=== PATIENT | male | born 1995 | race Caucasian/White ===

== ENCOUNTER 2018-03-17 09:17 | Inpatient (IN) | payer MEDICAID ==
[~2018-03-17] VITALS: Ht 175.3 cm; Wt 50.0 kg
[~2018-03-17 09:17] MED LIST: NO HOME MEDS
[2018-03-17] MEDS ORDERED: TETanus/Pertussis (Acell)/Diphther VAC/PF (Tdap-Adult) 0.5ml syringe IM ONE (09:45)
[2018-03-17] MEDS ORDERED: normal saline 1000ML IV soln IV ONE (09:45)
[2018-03-17] MEDS ORDERED: LIDOcaine 1.5% w/epinephrine 1:200,000 5ml ampul IJ ONE (09:45)
[2018-03-17 10:09] LABS: BASOPHILS % (AUTO) 0.1 % (0-1); EOSINOPHILS % (AUTO) 0 % (0-6); HEMATOCRIT 35.4 % (42.0-52.0); HEMOGLOBIN 12.1 g/dl (14.0-17.9); LYMPHOCYTES # (AUTO) 2.4 X10'3 (1.1-4.8); LYMPHOCYTES % (AUTO) 18.1 % (21-51); MEAN CORPUSCULAR HEMOGLOBIN 28.7 PG (27.0-31.0); MEAN CORPUSCULAR VOLUME 84.5 FL (78-98); MEAN PLATELET VOLUME 6.6 FL (7.4-10.4); MONOCYTES # (AUTO) 0.9 X10'3 (0-0.9); MONOCYTES % (AUTO) 6.4 % (2-12); NEUTROPHILS % (AUTO) 75.4 % (42-75); PLATELET COUNT 278 X10'3 (140-440); RED BLOOD COUNT 4.19 X10'6 (4.70-6.10); RED CELL DISTRIBUTION WIDTH 13.5 % (11.5-14.5); WHITE BLOOD COUNT 13.3 X10'3 (4.5-11.0)
[2018-03-17] MEDS ORDERED: iohexol 300mg/ml 100ml inj. ONE (10:10)
[2018-03-17 10:27] LABS: PLATELET ESTIMATE NORMAL; TOTAL CELLS COUNTED 100
[2018-03-17 10:34] LABS: ALANINE AMINOTRANSFERASE 43 U/L (12-78); ALBUMIN/GLOBULIN RATIO 0.7 (1.1-1.5); ALKALINE PHOSPHATASE 63 IU/L (46-116); ANION GAP 9 (8-16); ASPARTATE AMINO TRANSFERASE 29 U/L (10-37); BILIRUBIN,TOTAL 0.5 MG/DL (0.1-1.0); BLOOD UREA NITROGEN 8 MG/DL (7-18); BUN/CREATININE RATIO 8.2 (5.4-32.0); CALCIUM 8.3 MG/DL (8.5-10.1); CHLORIDE 96 MMOL/L (99-107); CREATININE 0.98 MG/DL (0.60-1.10); GLUCOSE 138 MG/DL (70-104); POTASSIUM 3.5 MMOL/L (3.5-5.1); SODIUM 134 MMOL/L (135-145); TOTAL PROTEIN 7.1 G/DL (6.4-8.2); eGFR > 90 ML/MIN
[2018-03-17] MEDS ORDERED: piperacillin/tazo 3.375gm/50ml 50 ML IV ONE (10:55)
[2018-03-17] MEDS ORDERED: vancomycin/NS 1 GM ADD-VANTAGE 250 ML IV ONE ×2 (10:55→13:00)
[2018-03-17] MEDS ORDERED: magnesium 4gm in 100ml NS 100 ML IV PRN (13:20)
[2018-03-17] MEDS ORDERED: magnesium 2GM in 50ml NS 50 ML IV PRN (13:20)
[2018-03-17] MEDS ORDERED: diphenhydrAMINE 25mg capsule PO PRN (13:20)
[2018-03-17] MEDS ORDERED: morphine 4 MG/ML inj SYRINge IV PRN (13:20)
[2018-03-17] MEDS ORDERED: HYDROcodone/acetaminophen 5mg/325mg tablet PO PRN (13:20)
[2018-03-17] MEDS ORDERED: magnesium hydroxide 30ml (MOM) UD suspension PO PRN (13:20)
[2018-03-17] MEDS ORDERED: magnesium Cl slow-release 64mg tablet PO PRN (13:20)
[2018-03-17] MEDS ORDERED: acetaminophen 325mg tablet PO PRN ×2 (13:20)
[2018-03-17] MEDS ORDERED: potassium Cl 20 mEq SR tablet PO PRN ×2 (13:20)
[2018-03-17] MEDS ORDERED: mag hydrox/Alum hydrox/simeth 30ml oral suspension PO PRN (13:20)
[2018-03-17] MEDS ORDERED: potassium Cl 40MEQ/NS 500ml 500 ML IV PRN ×2 (13:20)
[2018-03-17] MEDS ORDERED: lactobacillus rhamnosus 10,000 MMU CELLS/CAPSULE PO ONE (13:50)
[2018-03-17] MEDS: piperacillin/tazo 3.375gm/50ml 50 ML IV SCH ×2 (14:00→20:36)
[2018-03-17] MEDS: ondansetron/PF 4mg/2ml inj IV PRN (14:49)
[2018-03-17] MEDS: HYDROcodone/acetaminophen 10/325mg tab PO PRN (15:02)
[2018-03-17] MEDS: normal saline 1000ml 1,000 ML IV SCH ×2 (15:02→18:46)
[2018-03-17 15:07] LABS: CLARITY,URINE CLEAR (Clear); COLOR,URINE YELLOW (Yellow); GLUCOSE, URINE NEGATIVE (Neg); KETONES,URINE NEGATIVE (Neg); LEUKOCYTE ESTERASE ,URINE NEGATIVE (Neg); NITRITES, URINE NEGATIVE (Neg); OCCULT BLOOD,URINE NEGATIVE (Neg); PROTEIN,URINE NEGATIVE (Neg)
[2018-03-17 15:08] LABS: UA COLLECTION TYPE VOIDED
[2018-03-17 15:20] LABS: URINE AMPHETAMINE SCREEN POSITIVE (Neg); URINE BARBITUATE SCREEN NEGATIVE (Neg); URINE BENZODIAZEPINES SCREEN NEGATIVE (Neg); URINE CANNABINOID SCREEN NEGATIVE (Neg); URINE COCAINE SCREEN NEGATIVE (Neg); URINE METHADONE SCREEN NEGATIVE (Neg); URINE OPIATE SCREEN NEGATIVE (Neg); URINE PHENCYCLIDINE SCREEN NEGATIVE (Neg)
[2018-03-17 16:17] LABS: HIV ANTIBODY 1&2 RAPID NON-REACTIVE (Neg)
[2018-03-17 17:00] VITALS: BP 101/62
[2018-03-17] MEDS: K and/or MAG REPLACEMENT MC SCH (17:24)
[2018-03-17 18:00] VITALS: BP 115/77
[2018-03-17] MEDS: heparin, porcine 5000 units/ml vial SQ SCH (20:00)
[2018-03-17] MEDS: morphine 4 MG/ML inj SYRINge IV PRN (21:39)
[2018-03-17 22:00] VITALS: BP 105/63
[2018-03-18] VITALS (10 sets, daily range): BP systolic 92–107; BP diastolic 56–77
[2018-03-18] MEDS: VANCOMYCIN 750MG IV in NS 250 ML IV SCH ×2 (00:59→16:11)
[2018-03-18] MEDS ORDERED: LORazepam 2 mg/ml vial IV PRN (02:00)
[2018-03-18] MEDS ORDERED: LORazepam 1 MG tablet PO PRN (02:00)
[2018-03-18] MEDS: piperacillin/tazo 3.375gm/50ml 50 ML IV SCH ×4 (03:02→20:42)
[2018-03-18] MEDS: HYDROcodone/acetaminophen 10/325mg tab PO PRN ×3 (03:09→20:41)
[2018-03-18] MEDS: normal saline 1000ml 1,000 ML IV SCH ×3 (03:18→15:56)
[2018-03-18 06:26] LABS: BASOPHILS % (AUTO) 0.2 % (0-1); EOSINOPHILS # (AUTO) 0.1 X10'3 (0-0.9); EOSINOPHILS % (AUTO) 0.4 % (0-6); HEMATOCRIT 35.3 % (42.0-52.0); HEMOGLOBIN 12.1 g/dl (14.0-17.9); LYMPHOCYTES # (AUTO) 1.5 X10'3 (1.1-4.8); LYMPHOCYTES % (AUTO) 9.8 % (21-51); MEAN CORPUSCULAR HEMOGLOBIN 28.9 PG (27.0-31.0); MEAN CORPUSCULAR HGB CONC 34.2 % (33.0-36.5); MEAN CORPUSCULAR VOLUME 84.4 FL (78-98); MONOCYTES # (AUTO) 0.9 X10'3 (0-0.9); MONOCYTES % (AUTO) 5.9 % (2-12); NEUTROPHILS % (AUTO) 83.7 % (42-75); PLATELET COUNT 252 X10'3 (140-440); RED BLOOD COUNT 4.18 X10'6 (4.70-6.10); RED CELL DISTRIBUTION WIDTH 13.4 % (11.5-14.5); WHITE BLOOD COUNT 15.5 X10'3 (4.5-11.0)
[2018-03-18 06:37] LABS: ALANINE AMINOTRANSFERASE 39 U/L (12-78); ALBUMIN 2.3 G/DL (3.4-5.0); ALBUMIN/GLOBULIN RATIO 0.6 (1.1-1.5); ALKALINE PHOSPHATASE 62 IU/L (46-116); ANION GAP 9 (8-16); ASPARTATE AMINO TRANSFERASE 30 U/L (10-37); BILIRUBIN,TOTAL 0.4 MG/DL (0.1-1.0); BLOOD UREA NITROGEN 7 MG/DL (7-18); CALCIUM 8.3 MG/DL (8.5-10.1); CHLORIDE 101 MMOL/L (99-107); CREATININE 0.78 MG/DL (0.60-1.10); GLUCOSE 126 MG/DL (70-104); MAGNESIUM 2.1 MG/DL (1.5-2.4); PHOSPHORUS 2.7 MG/DL (2.3-4.5); POTASSIUM 3.9 MMOL/L (3.5-5.1); SODIUM 135 MMOL/L (135-145); TOTAL PROTEIN 6.4 G/DL (6.4-8.2); eGFR > 90 ML/MIN
[2018-03-18] MEDS: K and/or MAG REPLACEMENT MC SCH (07:21)
[2018-03-18] MEDS: heparin, porcine 5000 units/ml vial SQ SCH ×3 (07:22→21:08)
[2018-03-18] MEDS ORDERED: ringers solution, lacted 1,000 ML IV SCH (11:58)
[2018-03-18] MEDS ORDERED: ondansetron/PF 4mg/2ml inj IV PRN (12:00)
[2018-03-18] MEDS ORDERED: proCHLORperazine 10 MG/2 ml inj IV PRN (12:00)
[2018-03-18] MEDS ORDERED: morphine 4 MG/ML inj SYRINge IV PRN ×2 (12:00)
[2018-03-18] MEDS ORDERED: meperidine/PF 25mg/ml syringe IV PRN ×3 (12:00)
[2018-03-18] MEDS ORDERED: sevoflurane 250ml liquid IH ONE (12:43)
[2018-03-18] MEDS ORDERED: propofol 10mg/ml 20ml vial IV ONE (12:43)
[2018-03-18] MEDS ORDERED: fentaNYL/PF 50MCG/1 ML 2ML syringe ONE (13:52)
[2018-03-18] MEDS ORDERED: LIDOcaine 1%/PF (10mg/ml) 5ml vial ONE (14:05)
[2018-03-18] MEDS ORDERED: propofol inj 20 ML IV ONE (14:05)
[2018-03-18] MEDS ORDERED: midazolam 2 mg/2 ml injection ONE (14:05)
[2018-03-18] MEDS ORDERED: ROPIVAcaine 0.5% (5mg/ml) 30ml vial ONE (14:15)
[2018-03-18] MEDS ORDERED: ROPIVAcaine 0.5% (5mg/ml) 30ml vial IJ ONE (14:32)
[2018-03-18] MEDS: lactobacillus rhamnosus 10,000 MMU CELLS/CAPSULE PO SCH (20:42)
[2018-03-18] MEDS: nicotine 14mg patch - 24hr TD SCH (20:43)
[2018-03-19] MEDS: normal saline 1000ml 1,000 ML IV SCH ×4 (00:15→19:21)
[2018-03-19] MEDS: piperacillin/tazo 3.375gm/50ml 50 ML IV SCH ×4 (01:13→22:41)
[2018-03-19 02:00] VITALS: BP 108/64
[2018-03-19] MEDS: VANCOMYCIN 750MG IV in NS 250 ML IV SCH ×2 (02:01→12:51)
[2018-03-19 04:56] LABS: BASOPHILS % (AUTO) 0.3 % (0-1); EOSINOPHILS # (AUTO) 0.2 X10'3 (0-0.9); EOSINOPHILS % (AUTO) 1.6 % (0-6); HEMATOCRIT 34.5 % (42.0-52.0); HEMOGLOBIN 11.6 g/dl (14.0-17.9); LYMPHOCYTES # (AUTO) 2.3 X10'3 (1.1-4.8); LYMPHOCYTES % (AUTO) 21.6 % (21-51); MEAN CORPUSCULAR HEMOGLOBIN 28.4 PG (27.0-31.0); MEAN CORPUSCULAR HGB CONC 33.5 % (33.0-36.5); MEAN CORPUSCULAR VOLUME 84.8 FL (78-98); MEAN PLATELET VOLUME 7.2 FL (7.4-10.4); MONOCYTES # (AUTO) 0.5 X10'3 (0-0.9); MONOCYTES % (AUTO) 4.3 % (2-12); NEUTROPHILS # (AUTO) 7.7 X10'3 (1.8-7.7); NEUTROPHILS % (AUTO) 72.2 % (42-75); PLATELET COUNT 283 X10'3 (140-440); RED BLOOD COUNT 4.07 X10'6 (4.70-6.10); RED CELL DISTRIBUTION WIDTH 13.5 % (11.5-14.5); WHITE BLOOD COUNT 10.7 X10'3 (4.5-11.0)
[2018-03-19 05:11] LABS: ALANINE AMINOTRANSFERASE 38 U/L (12-78); ALBUMIN/GLOBULIN RATIO 0.5 (1.1-1.5); ALKALINE PHOSPHATASE 61 IU/L (46-116); ANION GAP 7 (8-16); ASPARTATE AMINO TRANSFERASE 29 U/L (10-37); BILIRUBIN,TOTAL 0.3 MG/DL (0.1-1.0); BLOOD UREA NITROGEN 7 MG/DL (7-18); BUN/CREATININE RATIO 10.4 (5.4-32.0); CALCIUM 7.9 MG/DL (8.5-10.1); CHLORIDE 99 MMOL/L (99-107); CREATININE 0.67 MG/DL (0.60-1.10); GLUCOSE 112 MG/DL (70-104); PHOSPHORUS 2.3 MG/DL (2.3-4.5); POTASSIUM 3.6 MMOL/L (3.5-5.1); SODIUM 135 MMOL/L (135-145); TOTAL CARBON DIOXIDE 29.5 MMOL/L (24-32); TOTAL PROTEIN 5.8 G/DL (6.4-8.2); eGFR > 90 ML/MIN
[2018-03-19 06:00] VITALS: BP 92/51
[2018-03-19] MEDS: lactobacillus rhamnosus 10,000 MMU CELLS/CAPSULE PO SCH ×2 (07:14→22:42)
[2018-03-19] MEDS: nicotine 14mg patch - 24hr TD SCH (07:15)
[2018-03-19] MEDS: HYDROcodone/acetaminophen 10/325mg tab PO PRN ×2 (07:23→12:50)
[2018-03-19] MEDS: K and/or MAG REPLACEMENT MC SCH (08:00)
[2018-03-19] MEDS: ondansetron/PF 4mg/2ml inj IV PRN (09:01)
[2018-03-19 10:00] VITALS: BP 91/58
[2018-03-19] MEDS ORDERED: VANCOMYCIN LEVEL IV ONE (12:30)
[2018-03-19 13:21] LABS: HBSAG SCREEN Negative (Negative); HEP A AB, IGM Negative (Negative); HEP B CORE AB, IGM Negative (Negative); HEPATITIS C ANTIBODY <0.1 s/co ratio (0.0-0.9)
[2018-03-19 14:00] VITALS: BP 103/61
[2018-03-19 19:00] VITALS: BP 102/65
[2018-03-19] MEDS: heparin, porcine 5000 units/ml vial SQ SCH (20:00)
[2018-03-19 22:00] VITALS: BP 97/68
[2018-03-20] MEDS: VANCOMYCIN 750MG IV in NS 250 ML IV SCH ×3 (00:37→20:12)
[2018-03-20] MEDS: piperacillin/tazo 3.375gm/50ml 50 ML IV SCH ×4 (03:42→20:10)
[2018-03-20 05:32] LABS: BASOPHILS % (AUTO) 0.3 % (0-1); EOSINOPHILS # (AUTO) 0.2 X10'3 (0-0.9); EOSINOPHILS % (AUTO) 1.9 % (0-6); HEMATOCRIT 34.3 % (42.0-52.0); HEMOGLOBIN 11.7 g/dl (14.0-17.9); LYMPHOCYTES # (AUTO) 3.7 X10'3 (1.1-4.8); LYMPHOCYTES % (AUTO) 34.8 % (21-51); MEAN CORPUSCULAR HEMOGLOBIN 28.5 PG (27.0-31.0); MEAN CORPUSCULAR VOLUME 83.9 FL (78-98); MEAN PLATELET VOLUME 6.8 FL (7.4-10.4); MONOCYTES # (AUTO) 0.7 X10'3 (0-0.9); MONOCYTES % (AUTO) 6.3 % (2-12); NEUTROPHILS % (AUTO) 56.7 % (42-75); PLATELET COUNT 320 X10'3 (140-440); RED BLOOD COUNT 4.09 X10'6 (4.70-6.10); RED CELL DISTRIBUTION WIDTH 13.5 % (11.5-14.5); WHITE BLOOD COUNT 10.6 X10'3 (4.5-11.0)
[2018-03-20 05:54] LABS: ALANINE AMINOTRANSFERASE 54 U/L (12-78); ALBUMIN 2.1 G/DL (3.4-5.0); ALBUMIN/GLOBULIN RATIO 0.5 (1.1-1.5); ALKALINE PHOSPHATASE 66 IU/L (46-116); ANION GAP 7 (8-16); ASPARTATE AMINO TRANSFERASE 45 U/L (10-37); BILIRUBIN,TOTAL 0.3 MG/DL (0.1-1.0); BLOOD UREA NITROGEN 7 MG/DL (7-18); BUN/CREATININE RATIO 9.7 (5.4-32.0); CALCIUM 8.4 MG/DL (8.5-10.1); CHLORIDE 100 MMOL/L (99-107); CREATININE 0.72 MG/DL (0.60-1.10); GLUCOSE 108 MG/DL (70-104); MAGNESIUM 2.1 MG/DL (1.5-2.4); PHOSPHORUS 2.9 MG/DL (2.3-4.5); SODIUM 136 MMOL/L (135-145); TOTAL CARBON DIOXIDE 29.1 MMOL/L (24-32); TOTAL PROTEIN 6.2 G/DL (6.4-8.2); eGFR > 90 ML/MIN
[2018-03-20 06:00] VITALS: BP 105/66
[2018-03-20] MEDS: normal saline 1000ml 1,000 ML IV SCH ×3 (06:33→15:30)
[2018-03-20] MEDS: K and/or MAG REPLACEMENT MC SCH (08:00)
[2018-03-20] MEDS: heparin, porcine 5000 units/ml vial SQ SCH ×2 (08:00→20:00)
[2018-03-20 10:00] VITALS: BP 88/53
[2018-03-20] MEDS: nicotine 14mg patch - 24hr TD SCH (10:33)
[2018-03-20] MEDS: lactobacillus rhamnosus 10,000 MMU CELLS/CAPSULE PO SCH ×2 (10:33→20:10)
[2018-03-20] MEDS: HYDROcodone/acetaminophen 10/325mg tab PO PRN ×3 (10:34→20:16)
[2018-03-20] MEDS ORDERED: VANCOMYCIN LEVEL IV ONE (12:30)
[2018-03-20 13:30] VITALS: BP 99/57
[2018-03-20 18:00] VITALS: BP 100/57
[2018-03-20 22:00] VITALS: BP 106/67
[2018-03-21] MEDS: normal saline 1000ml 1,000 ML IV SCH ×3 (00:55→12:07)
[2018-03-21] MEDS: piperacillin/tazo 3.375gm/50ml 50 ML IV SCH (01:54)
[2018-03-21] MEDS: VANCOMYCIN 750MG IV in NS 250 ML IV SCH (04:15)
[2018-03-21 06:00] VITALS: BP 105/55
[2018-03-21 06:58] LABS: BASOPHILS % (AUTO) 0.4 % (0-1); EOSINOPHILS # (AUTO) 0.3 X10'3 (0-0.9); HEMOGLOBIN 12.6 g/dl (14.0-17.9); LYMPHOCYTES # (AUTO) 4.6 X10'3 (1.1-4.8); LYMPHOCYTES % (AUTO) 45.9 % (21-51); MEAN CORPUSCULAR HEMOGLOBIN 28.3 PG (27.0-31.0); MEAN CORPUSCULAR VOLUME 83.4 FL (78-98); MEAN PLATELET VOLUME 6.8 FL (7.4-10.4); MONOCYTES # (AUTO) 0.7 X10'3 (0-0.9); NEUTROPHILS # (AUTO) 4.4 X10'3 (1.8-7.7); NEUTROPHILS % (AUTO) 43.7 % (42-75); PLATELET COUNT 385 X10'3 (140-440); RED BLOOD COUNT 4.44 X10'6 (4.70-6.10); RED CELL DISTRIBUTION WIDTH 14.4 % (11.5-14.5)
[2018-03-21 07:21] LABS: ALANINE AMINOTRANSFERASE 160 U/L (12-78); ALBUMIN 2.3 G/DL (3.4-5.0); ALBUMIN/GLOBULIN RATIO 0.5 (1.1-1.5); ALKALINE PHOSPHATASE 118 IU/L (46-116); ANION GAP 5 (8-16); ASPARTATE AMINO TRANSFERASE 174 U/L (10-37); BILIRUBIN,TOTAL 0.3 MG/DL (0.1-1.0); BLOOD UREA NITROGEN 8 MG/DL (7-18); BUN/CREATININE RATIO 9.3 (5.4-32.0); CALCIUM 8.3 MG/DL (8.5-10.1); CHLORIDE 102 MMOL/L (99-107); CREATININE 0.86 MG/DL (0.60-1.10); GLUCOSE 101 MG/DL (70-104); MAGNESIUM 2.4 MG/DL (1.5-2.4); PHOSPHORUS 3.2 MG/DL (2.3-4.5); POTASSIUM 4.1 MMOL/L (3.5-5.1); SODIUM 138 MMOL/L (135-145); TOTAL CARBON DIOXIDE 31.2 MMOL/L (24-32); TOTAL PROTEIN 6.7 G/DL (6.4-8.2); eGFR > 90 ML/MIN
[2018-03-21] MEDS: K and/or MAG REPLACEMENT MC SCH (08:27)
[2018-03-21] MEDS: heparin, porcine 5000 units/ml vial SQ SCH ×2 (08:49→08:52)
[2018-03-21] MEDS: lactobacillus rhamnosus 10,000 MMU CELLS/CAPSULE PO SCH ×2 (08:50→19:48)
[2018-03-21] MEDS: nicotine 14mg patch - 24hr TD SCH (08:50)
[2018-03-21] MEDS: CefTRIAXone/D5W-Rocephin 1gm 50 ML IV SCH (09:08)
[2018-03-21 10:00] VITALS: BP 107/66
[2018-03-21] MEDS ORDERED: VANCOMYCIN LEVEL IV ONE (15:30)
[2018-03-21 19:00] VITALS: BP 103/67
[2018-03-21] MEDS: HYDROcodone/acetaminophen 10/325mg tab PO PRN (19:48)
[2018-03-21 22:00] VITALS: BP 100/61
[2018-03-22] MEDS: normal saline 1000ml 1,000 ML IV SCH ×2 (00:42→15:15)
[2018-03-22 05:55] LABS: BASOPHILS # (AUTO) 0.1 X10'3 (0-0.2); BASOPHILS % (AUTO) 0.7 % (0-1); EOSINOPHILS # (AUTO) 0.4 X10'3 (0-0.9); EOSINOPHILS % (AUTO) 3.8 % (0-6); HEMATOCRIT 35.9 % (42.0-52.0); HEMOGLOBIN 11.9 g/dl (14.0-17.9); LYMPHOCYTES # (AUTO) 5.9 X10'3 (1.1-4.8); LYMPHOCYTES % (AUTO) 51.1 % (21-51); MEAN CORPUSCULAR HEMOGLOBIN 28.1 PG (27.0-31.0); MEAN CORPUSCULAR HGB CONC 33.1 % (33.0-36.5); MEAN CORPUSCULAR VOLUME 84.9 FL (78-98); MEAN PLATELET VOLUME 7.3 FL (7.4-10.4); MONOCYTES # (AUTO) 0.8 X10'3 (0-0.9); MONOCYTES % (AUTO) 6.9 % (2-12); NEUTROPHILS # (AUTO) 4.3 X10'3 (1.8-7.7); NEUTROPHILS % (AUTO) 37.5 % (42-75); PLATELET COUNT 325 X10'3 (140-440); RED BLOOD COUNT 4.22 X10'6 (4.70-6.10); RED CELL DISTRIBUTION WIDTH 13.7 % (11.5-14.5); WHITE BLOOD COUNT 11.5 X10'3 (4.5-11.0)
[2018-03-22 06:00] VITALS: BP 98/76
[2018-03-22 06:07] LABS: ALANINE AMINOTRANSFERASE 249 U/L (12-78); ALBUMIN 2.4 G/DL (3.4-5.0); ALBUMIN/GLOBULIN RATIO 0.6 (1.1-1.5); ALKALINE PHOSPHATASE 134 IU/L (46-116); ANION GAP 9 (8-16); ASPARTATE AMINO TRANSFERASE 210 U/L (10-37); BILIRUBIN,TOTAL 0.2 MG/DL (0.1-1.0); BLOOD UREA NITROGEN 9 MG/DL (7-18); BUN/CREATININE RATIO 13.4 (5.4-32.0); CALCIUM 8.6 MG/DL (8.5-10.1); CHLORIDE 104 MMOL/L (99-107); CREATININE 0.67 MG/DL (0.60-1.10); GLUCOSE 96 MG/DL (70-104); MAGNESIUM 2.4 MG/DL (1.5-2.4); PHOSPHORUS 3.7 MG/DL (2.3-4.5); POTASSIUM 4.2 MMOL/L (3.5-5.1); SODIUM 140 MMOL/L (135-145); TOTAL CARBON DIOXIDE 27.3 MMOL/L (24-32); TOTAL PROTEIN 6.7 G/DL (6.4-8.2); eGFR > 90 ML/MIN
[2018-03-22] MEDS: K and/or MAG REPLACEMENT MC SCH (07:12)
[2018-03-22] MEDS: CefTRIAXone/D5W-Rocephin 1gm 50 ML IV SCH (07:21)
[2018-03-22] MEDS: lactobacillus rhamnosus 10,000 MMU CELLS/CAPSULE PO SCH ×2 (07:23→20:24)
[2018-03-22] MEDS: heparin, porcine 5000 units/ml vial SQ SCH ×2 (07:25→20:00)
[2018-03-22] MEDS: morphine 4 MG/ML inj SYRINge IV PRN (07:46)
[2018-03-22] MEDS: nicotine 14mg patch - 24hr TD SCH (08:00)
[2018-03-22 10:00] VITALS: BP 118/60
[2018-03-22] MEDS: HYDROcodone/acetaminophen 10/325mg tab PO PRN ×2 (15:11→20:24)
[2018-03-22] MEDS ORDERED: CLIN-80 PO (15:28)
[2018-03-22] MEDS ORDERED: IBUP-1986 PO (15:28)
[2018-03-22 18:30] VITALS: BP 99/62
[2018-03-22 22:00] VITALS: BP 108/59
[2018-03-23] MEDS: HYDROcodone/acetaminophen 10/325mg tab PO PRN ×2 (00:14→04:19)
[2018-03-23] MEDS: normal saline 1000ml 1,000 ML IV SCH (00:17)
[2018-03-23 06:00] VITALS: BP 102/65
[2018-03-23] MEDS: K and/or MAG REPLACEMENT MC SCH (07:33)
[2018-03-23] MEDS: lactobacillus rhamnosus 10,000 MMU CELLS/CAPSULE PO SCH (07:42)
[2018-03-23] MEDS: CefTRIAXone/D5W-Rocephin 1gm 50 ML IV SCH (07:42)
[2018-03-23] MEDS: heparin, porcine 5000 units/ml vial SQ SCH (07:42)
[2018-03-23] MEDS: nicotine 14mg patch - 24hr TD SCH (07:43)
[2018-03-24 05:28] LABS: HBSAG SCREEN Negative (Negative); HEP A AB, IGM Negative (Negative); HEP B CORE AB, IGM Negative (Negative); HEPATITIS C ANTIBODY 0.1 s/co ratio (0.0-0.9)
== END 2018-03-23 10:30 | disposition home or self-care (01) | DRG 710 ==
LOC: ER 09:17 → ED HOLD 13:16 → ORTHO 4S 16:53 → CMPBEDREQ 19:38 → ORTHO 4S 03-18 20:21
PROVIDERS: ADMIT Family Medicine; ATTEND Family Medicine
PROC: 0K9B0ZZ Drainage of Left Lower Arm and Wrist Muscle, Open Approach (ICD-10-PCS; principal; 2018-03-18 12:43)
DX: A40.9 Streptococcal sepsis, unspecified (principal); F15.10 Other stimulant abuse, uncomplicated; L02.413 Cutaneous abscess of right upper limb; L02.414 Cutaneous abscess of left upper limb; L03.113 Cellulitis of right upper limb; G89.29 Other chronic pain; M54.9 Dorsalgia, unspecified; Z59.0 Homelessness; Z87.891 Personal history of nicotine dependence; Z79.899 Other long term (current) drug therapy; Z68.1 Body mass index [BMI] 19.9 or less, adult
CPT/HCPCS: 36415; 73201; 76700; 80053; 80202; 80305; 80320; 81003; 83605; 83735; 84100; 85025; 86703; 86705; 86706; 86709; 86803; 87040; 87070; 87075; 87077; 87102; 87186; 87340; 90471; 90715; 93306; 96361; 96365; 96368; 99285; A6222; A6223; A6253; A6266; A6446; A6449; A7000; J0696; J1644; J2001; J2250; J2270; J2405; J2543; J2704; J2795; J3010; J3370; J3490; J7030; J7120; Q9967

== ENCOUNTER 2018-04-01 14:58 | Emergency (ER) | payer MEDICAID ==
[~2018-04-01] VITALS: Ht 175.3 cm; Wt 51.9 kg
[~2018-04-01 14:58] MED LIST changes: +CLIN300C85 PO; +IBUP-1986 PO; -NO HOME MEDS
[2018-04-01] MEDS ORDERED: LORazepam 2 mg/ml vial IV ONE (15:20)
[2018-04-01] MEDS ORDERED: normal saline 1000ML IV soln IVB ONE (15:20)
[2018-04-01 15:39] LABS: BASOPHILS # (AUTO) 0.1 X10'3 (0-0.2); BASOPHILS % (AUTO) 0.8 % (0-1); EOSINOPHILS # (AUTO) 0.1 X10'3 (0-0.9); EOSINOPHILS % (AUTO) 1.4 % (0-6); HEMATOCRIT 33.9 % (42.0-52.0); HEMOGLOBIN 11.2 g/dl (14.0-17.9); LYMPHOCYTES % (AUTO) 49.3 % (21-51); MEAN CORPUSCULAR HEMOGLOBIN 27.8 PG (27.0-31.0); MEAN CORPUSCULAR HGB CONC 33.1 % (33.0-36.5); MEAN PLATELET VOLUME 6.3 FL (7.4-10.4); MONOCYTES # (AUTO) 0.6 X10'3 (0-0.9); MONOCYTES % (AUTO) 10.7 % (2-12); NEUTROPHILS # (AUTO) 2.3 X10'3 (1.8-7.7); NEUTROPHILS % (AUTO) 37.8 % (42-75); PLATELET COUNT 427 X10'3 (140-440); RED BLOOD COUNT 4.04 X10'6 (4.70-6.10); RED CELL DISTRIBUTION WIDTH 15.8 % (11.5-14.5)
[2018-04-01 15:53] LABS: ALANINE AMINOTRANSFERASE 79 U/L (12-78); ALBUMIN 3.2 G/DL (3.4-5.0); ALBUMIN/GLOBULIN RATIO 0.8 (1.1-1.5); ALKALINE PHOSPHATASE 113 IU/L (46-116); ANION GAP 9 (8-16); ASPARTATE AMINO TRANSFERASE 46 U/L (10-37); BILIRUBIN,TOTAL 0.3 MG/DL (0.1-1.0); BLOOD UREA NITROGEN 19 MG/DL (7-18); BUN/CREATININE RATIO 20.2 (5.4-32.0); CALCIUM 8.7 MG/DL (8.5-10.1); CHLORIDE 103 MMOL/L (99-107); CREATININE 0.94 MG/DL (0.60-1.10); GLUCOSE 100 MG/DL (70-104); POTASSIUM 3.6 MMOL/L (3.5-5.1); SODIUM 140 MMOL/L (135-145); TOTAL CARBON DIOXIDE 28.3 MMOL/L (24-32); TOTAL PROTEIN 7.2 G/DL (6.4-8.2); eGFR > 90 ML/MIN
[2018-04-01 17:57] VITALS: BP 117/78
== END 2018-04-01 18:38 | disposition home or self-care (01) ==
LOC: ER 14:58
DX: F15.10 Other stimulant abuse, uncomplicated (principal)
CPT/HCPCS: 36415; 80053; 85025; 96361; 96374; 99284; J2060; J7030

== ENCOUNTER 2018-04-13 22:15 | Emergency (ER) | payer MEDICAID ==
[~2018-04-13] VITALS: Ht 175.3 cm; Wt 56.4 kg
[2018-04-13 22:20] VITALS: BP 119/72
[2018-04-13 23:02] LABS: CLARITY,URINE CLEAR (Clear); COLOR,URINE YELLOW (Yellow); GLUCOSE, URINE NEGATIVE (Neg); KETONES,URINE NEGATIVE (Neg); LEUKOCYTE ESTERASE ,URINE NEGATIVE (Neg); NITRITES, URINE NEGATIVE (Neg); OCCULT BLOOD,URINE TRACE-INTACT (Neg); PROTEIN,URINE NEGATIVE (Neg); UROBILINOGEN,URINE 0.2 E.U/dL (0.2-1.0)
[2018-04-13 23:03] LABS: UA COLLECTION TYPE VOIDED
[2018-04-13 23:11] LABS: URINE AMPHETAMINE SCREEN NEGATIVE (Neg); URINE BARBITUATE SCREEN NEGATIVE (Neg); URINE BENZODIAZEPINES SCREEN NEGATIVE (Neg); URINE CANNABINOID SCREEN NEGATIVE (Neg); URINE COCAINE SCREEN NEGATIVE (Neg); URINE METHADONE SCREEN NEGATIVE (Neg); URINE OPIATE SCREEN NEGATIVE (Neg); URINE PHENCYCLIDINE SCREEN NEGATIVE (Neg)
[2018-04-13 23:21] LABS: BACTERIA,URINE FEW /HPF (Neg); RBC,URINE 0-2 /HPF (0-2); SQUAMOUS EPITHELIAL CELL,UR FEW /LPF (FEW); WBC,URINE 0-4 /HPF (0-4)
[2018-04-13 23:22] LABS: AMORPHOUS PHOSPHATES 1+
== END 2018-04-14 00:08 | disposition home or self-care (01) ==
LOC: ER 22:16
DX: F41.9 Anxiety disorder, unspecified (principal); R11.10 Vomiting, unspecified; R42 Dizziness and giddiness; F17.200 Nicotine dependence, unspecified, uncomplicated; F15.90 Other stimulant use, unspecified, uncomplicated; G89.29 Other chronic pain; Z79.2 Long term (current) use of antibiotics; Z79.899 Other long term (current) drug therapy; Z59.0 Homelessness
CPT/HCPCS: 80305; 81001; 93005; 99285

== ENCOUNTER 2018-07-04 14:25 | Emergency (ER) | payer MEDICAID ==
[~2018-07-04] VITALS: Ht 175.3 cm; Wt 55.0 kg
[2018-07-04 14:29] VITALS: BP 94/69
[2018-07-04 15:00] LABS: CLARITY,URINE CLEAR (Clear); COLOR,URINE YELLOW (Yellow); GLUCOSE, URINE NEGATIVE (Neg); KETONES,URINE 15 mg/dl (Neg); LEUKOCYTE ESTERASE ,URINE NEGATIVE (Neg); NITRITES, URINE NEGATIVE (Neg); OCCULT BLOOD,URINE NEGATIVE (Neg); PROTEIN,URINE NEGATIVE (Neg)
[2018-07-04 15:18] LABS: UA COLLECTION TYPE CLN CATCH MIDSTREAM
== END 2018-07-04 15:39 | disposition left against medical advice (07) ==
LOC: ER 14:26
DX: F15.10 Other stimulant abuse, uncomplicated (principal); G89.29 Other chronic pain; M54.5 Low back pain; R42 Dizziness and giddiness; R11.0 Nausea
CPT/HCPCS: 81003; 99283

== ENCOUNTER 2018-08-01 17:06 | Emergency (ER) | payer MEDICAID ==
[~2018-08-01] VITALS: Ht 175.3 cm; Wt 54.8 kg
[2018-08-01 18:14] VITALS: BP 125/79
== END 2018-08-01 18:16 | disposition home or self-care (01) ==
LOC: ER 17:06
DX: F15.90 Other stimulant use, unspecified, uncomplicated (principal); Z00.8 Encounter for other general examination; G89.29 Other chronic pain; Z79.2 Long term (current) use of antibiotics; Z79.899 Other long term (current) drug therapy
CPT/HCPCS: 99281